=== PATIENT | female | born 1935 | race Caucasian/White ===

== ENCOUNTER 2018-01-21 15:25 | Inpatient (IN) | payer MEDICARE, OTHER ==
[~2018-01-21] VITALS: Ht 154.9 cm; Wt 45.4 kg
--- NOTE | 2018-01-21 15:30 | NUR ---
SENT BY DR BARNHART FOR L HIP WOUND DEBRIDEMENT, NAD NOTED, VSS, RESP EVEN AND UNLABORED, PT WAS PUT ON MONITOR, AT .
[2018-01-21 15:52] LABS: BASOPHILS % (AUTO) 0.2 % (0.0-2.0); HEMATOCRIT 29 % (33-45); HEMOGLOBIN 10.2 g/dL (11.5-14.8); LYMPHOCYTES # (AUTO) 0.7 /CMM (0.8-4.8); LYMPHOCYTES % (AUTO) 9.7 % (20.0-44.0); MEAN CORPUSCULAR HEMOGLOBIN 31 PG (26.0-33.0); MEAN CORPUSCULAR HGB CONC 35 g/dl (31.0-36.0); MEAN CORPUSCULAR VOLUME 89 fL (82-100); MONOCYTES # (AUTO) 0.5 /CMM (0.1-1.30); MONOCYTES % (AUTO) 6.4 % (2.0-12.0); NEUTROPHILS # (AUTO) 6.3 /CMM (1.8-8.9); NEUTROPHILS % (AUTO) 82.7 % (43.0-81.0); PLATELET COUNT (AUTO) 416 /CMM (150-450); RED BLOOD CELL COUNT(AUTO) 3.29 MIL/uL (4.0-5.2); WHITE BLOOD COUNT (AUTO) 7.6 K/uL (4.3-11.0)
--- NOTE | 2018-01-21 15:59 | NUR ---
PAGED DR BARNHART
[2018-01-21 16:01] LABS: CALCIUM, SERUM 8.6 mg/dL (8.5-10.1); CARBON DIOXIDE 25 mmol/L (21-32); CHLORIDE 100 mmol/L (98-107); CREATININE 0.4 mg/dL (0.6-1.3); GLUCOSE 116 mg/dL (74-106); POTASSIUM 3.9 mmol/L (3.5-5.1); SODIUM SERUM 133 mmol/L (136-145); UREA NITROGEN, BLOOD 10 mg/dL (7-18)
[2018-01-21 16:07] LABS: ALANINE AMINOTRANSFERASE 16 U/L (12-78); ALBUMIN 2.1 g/dL (3.4-5.0); ALKALINE PHOSPHATASE 85 U/L (46-116); ASPARTATE AMINOTRANSFERASE 15 U/L (15-37); BILIRUBIN,DIRECT 0.1 mg/dL (0.0-0.2); BILIRUBIN,TOTAL 0.3 mg/dL (0.2-1.0); TOTAL PROTEIN, SERUM 6.4 g/dL (6.4-8.2)
[2018-01-21] MEDS ORDERED: NA P133E RC (16:52)
[2018-01-21] MEDS ORDERED: MEMA5TAB PO (16:52)
[2018-01-21] MEDS ORDERED: CARB200T8 PO (16:52)
[2018-01-21] MEDS ORDERED: BENA20TA2 PO (16:52)
[2018-01-21] MEDS ORDERED: MAGN400O6 PO (16:52)
[2018-01-21] MEDS ORDERED: MIRT15TA PO (16:52)
[2018-01-21] MEDS ORDERED: NIFE60TA69 PO (16:52)
[2018-01-21] MEDS ORDERED: HYDR-4076 PO (16:52)
[2018-01-21] MEDS ORDERED: FERR325T23 PO (16:52)
[2018-01-21] MEDS ORDERED: ZINC220T PO (16:52)
[2018-01-21] MEDS ORDERED: ACET-2605 PO (16:52)
[2018-01-21] MEDS ORDERED: MULT-213 PO (16:52)
[2018-01-21] MEDS ORDERED: ASCO500T9 PO (16:52)
[2018-01-21] MEDS ORDERED: ACET-868 PO (16:52)
[2018-01-21 16:57] LABS: BAND % (MANUAL) 5 % (0.0-5.0); LYMPHOCYTES % (MANUAL) 5 % (16-48); MONOCYTES % (MANUAL) 10 % (0-11.0); NEUTROPHILS % (MANUAL) 80 (42-76)
--- NOTE | 2018-01-21 16:58 | NUR ---
REQUESTED MED SURG BED FROM NURSE SUP
--- NOTE | 2018-01-21 17:20 | NUR ---
PAGED DR. BARNHART - SECOND ATTEMPT
--- NOTE | 2018-01-21 17:48 | NUR ---
CALLED NURSE SUP FOR MED SURG BED
[2018-01-21] MEDS ORDERED: PIPERACILLIN /TAZOBACTAM 3.375 G in IV D5W 50 ML IV ONE (18:00)
[2018-01-21] MEDS ORDERED: VANCOMYCIN 1 GM in IV D5W 250 ML IV ONE (18:00)
--- NOTE | 2018-01-21 19:30 | NUR ---
TEST ANALYST NOTES: PATIENT RECEIVED IN BED, ALERT, ORIENTED X 1. MAKES INCOMPREHENSIBLE SOUNDS. NOT IN ANY DISTRESS. IV SITE INTACT AND PATENT. ADMISSION ORDERS TAKEN FROM DR. BARNHART. SKIN ASSESSMENT DONE, PICTURES IN CHART. DRESSINGS CLEANSED AND CLEANED. SAFETY PRECAUTIONS IN PLACE. WILL CONTINUE TO MONITOR
[2018-01-21 20:00] VITALS: BP 152/81
[2018-01-21] MEDS ORDERED: FEE PK DOSING 1 MIN EA MC ONE (20:23)
[2018-01-21] MEDS ORDERED: BENAZEPRIL HCL 20 MG TABLET PO ONE (22:30)
[2018-01-21] MEDS: ENOXAPARIN SODIUM 30 MG/0.3 ML DISP.SYRIN SQ SCH (22:49)
--- NOTE | 2018-01-21 22:57 | NUR ---
RN NOTES: BENAZEPRIL NOT GIVEN, PATIENT UNABLE TO SWALLOW. TRIED TO GIVE A LITTLE BIT OF APPLESAUCE FIRST, BUT PATIENT HAVE A HARD TIME SWALLOWING
--- NOTE | 2018-01-22 01:35 | NUR ---
RN NOTES: PATIENT TRANSFERRED TO ROOM 329 FOR ESBL WOUND ISOLATION.
--- NOTE | 2018-01-22 06:30 | NUR ---
RN NOTES: WOUND SWAB DONE. SENT TO LAB
--- NOTE | 2018-01-22 07:00 | NUR ---
RN CLOSING NOTES: PATIENT IN BED, ASLEEP BUT EASILY AROUSABLE. ANSERS TO NAME. IV SITE INTACT AND PATENT. NOT IN ANY DISTRESS. BODY AND SKIN ASSESSMENT DONE. ALL PICTURES TAKEN, PLACED IN CHART. ALL NEEDS ATTENDED TO. WILL ENDORSE RENETTA TO THE AM SHIFT RN
[2018-01-22] MEDS ORDERED: NA PHOS,M-B/NA PHOS,DI-BA 1 EA ENEMA RC PRN (07:30)
[2018-01-22] MEDS ORDERED: ACETAMINOPHEN 325 MG TABLET PO PRN (07:30)
[2018-01-22] MEDS ORDERED: MAGNESIUM HYDROXIDE 30 ML UDC PO PRN (07:30)
[2018-01-22] MEDS ORDERED: ACETAMINOPHEN ES 500 MG TABLET PO PRN (07:30)
[2018-01-22] MEDS ORDERED: CARBAMAZEPINE 200 MG TABLET PO PRN (07:30)
[2018-01-22 07:42] LABS: BASOPHILS # (AUTO) 0.1 /CMM (0.0-0.2); EOSINOPHILS % (AUTO) 1.6 % (0.0-6.0); HEMATOCRIT 30 % (33-45); HEMOGLOBIN 10.1 g/dL (11.5-14.8); LYMPHOCYTES # (AUTO) 0.7 /CMM (0.8-4.8); LYMPHOCYTES % (AUTO) 12.6 % (20.0-44.0); MEAN CORPUSCULAR HEMOGLOBIN 31 PG (26.0-33.0); MEAN CORPUSCULAR HGB CONC 34 g/dl (31.0-36.0); MEAN CORPUSCULAR VOLUME 92 fL (82-100); MONOCYTES # (AUTO) 0.4 /CMM (0.1-1.30); MONOCYTES % (AUTO) 6.7 % (2.0-12.0); NEUTROPHILS # (AUTO) 4.6 /CMM (1.8-8.9); NEUTROPHILS % (AUTO) 78.1 % (43.0-81.0); PLATELET COUNT (AUTO) 337 /CMM (150-450); RDW COEFFICIENT OF VARIATION 14.9 (11.5-15.0); RED BLOOD CELL COUNT(AUTO) 3.25 MIL/uL (4.0-5.2); WHITE BLOOD COUNT (AUTO) 5.9 K/uL (4.3-11.0)
--- NOTE | 2018-01-22 07:45 | NUR ---
MS RN OPENING NOTE RECEIVED BEDSIDE SBAR REPORT ON THE PATIENT. PATIENT IS ON CONTACT AMBULATION FOR ESBL URINE. PATIENT IS ALERT, ORIENTED TO SELF ONLY. VERBALLY REPONSIVE,BUT PRESENTS WITH GARBLED SPEECH. PATIENT IS IN BED, BED IS LOCKED IN LOWEST POSITION, SIDE RAILS UP X3, BED ALARM IS ON. CALL LIGHT WITHIN REACH. EDUCATED THE PATIENT TO CALL FOR ASSISTANCE USING THE CALL LIGHT. DENIES PAIN/DISCOMFORT AT THIS TIME. CHEST RISING EQUALLY/BILATERALLY. SPO2 99% ON 2 LPM OXYGEN VIA NASAL CANNULA. ESTRELLA CATHETER IN PLACE. ALL NEEDS ARE MET. WILL CONTINUE TO ASSESS/MONITOR THROUGHOUT THE SHIFT.
[2018-01-22 08:00] VITALS: BP_SYST 146; BP_DIAS 77; BP_DIAS 82
[2018-01-22] MEDS ORDERED: CARBAMAZEPINE 100 MG TAB.CHEW PO PRN (08:00)
[2018-01-22 08:21] LABS: CALCIUM, SERUM 8.6 mg/dL (8.5-10.1); CARBON DIOXIDE 24 mmol/L (21-32); CHLORIDE 101 mmol/L (98-107); CREATININE 0.4 mg/dL (0.6-1.3); GLUCOSE 68 mg/dL (74-106); POTASSIUM 3.6 mmol/L (3.5-5.1); SODIUM SERUM 133 mmol/L (136-145); UREA NITROGEN, BLOOD 9 mg/dL (7-18)
[2018-01-22] MEDS: BENAZEPRIL HCL 20 MG TABLET PO SCH ×2 (08:51→21:00)
[2018-01-22] MEDS: NIFEdipine XL 60 MG TAB PO SCH ×2 (08:52→17:22)
[2018-01-22] MEDS: ASCORBIC ACID 500 MG TABLET PO SCH (08:52)
[2018-01-22] MEDS: MEMANTINE HCL 5 MG TABLET PO SCH (08:52)
[2018-01-22] MEDS ORDERED: BENAZEPRIL HCL 20 MG TABLET PO SCH (09:00)
[2018-01-22] MEDS: VANCOMYCIN 0.75 GM in IV D5W 250 ML IV SCH (12:49)
[2018-01-22 16:00] VITALS: BP 182/81
[2018-01-22] MEDS: hydrALAZINE HCL 25 MG TABLET PO SCH ×2 (17:22→21:00)
--- NOTE | 2018-01-22 17:22 | NUR ---
holding the hydralazine at this time as patient's bp is 111/59
--- NOTE | 2018-01-22 19:33 | NUR ---
MS RN CLOSING NOTE GAVE BEDSIDE SBAR REPORT ON THE PATIENT. PATIENT IS ON CONTACT AMBULATION FOR ESBL URINE. PATIENT IS ALERT, ORIENTED TO SELF ONLY. VERBALLY REPONSIVE,BUT PRESENTS WITH GARBLED SPEECH. PATIENT IS IN BED, BED IS LOCKED IN LOWEST POSITION, SIDE RAILS UP X3, BED ALARM IS ON. CALL LIGHT WITHIN REACH. EDUCATED THE PATIENT TO CALL FOR ASSISTANCE USING THE CALL LIGHT. DENIES PAIN/DISCOMFORT AT THIS TIME. CHEST RISING EQUALLY/BILATERALLY. SPO2 99% ON 2 LPM OXYGEN VIA NASAL CANNULA. ESTRELLA CATHETER IN PLACE. ALL NEEDS ARE MET. ENDORSED TO [facility] GRAIN RECEIVER NURSE FOR RENETTA.
[2018-01-22 20:00] VITALS: BP 105/74
--- NOTE | 2018-01-22 20:00 | NUR ---
MS/CRYSTAL GROWING TECHNICIAN; RECEIVED THIS PT IN BED AWAKE WITH OPEN EYES NON VERBAL BUT MUMBLED WITH OPEN MOUTH AT TIMES. HOB AT 45 DEGREES. BREATHING NON LABORED. HL ON RH # 22 INTACT AND PATENT WHEN I FLUSHED WITH NS. FC INTACT WITH 25 ML CLEAR YELLOW URINE. NOTED PT LOWER EXTREMITIES ARE CONTRACTED. BED ON LOWER POSITION AND LOCKED FOR SAFETY. SIDE RAILS X 4 ARE UP FOR SAFETY. ON CONTACT ISOLATION OBSERVED. WILL CONNTINUE TO MONITOR.
[2018-01-22] MEDS: ENOXAPARIN SODIUM 30 MG/0.3 ML DISP.SYRIN SQ SCH (21:12)
[2018-01-23] MEDS: hydrALAZINE HCL 25 MG TABLET PO SCH ×3 (05:08→21:03)
[2018-01-23 06:17] LABS: RETICULOCYTE COUNT 2.6 % (0.6-2.5)
[2018-01-23 06:24] LABS: CALCIUM, SERUM 8.7 mg/dL (8.5-10.1); CARBON DIOXIDE 26 mmol/L (21-32); CHLORIDE 101 mmol/L (98-107); CREATININE 0.4 mg/dL (0.6-1.3); GLUCOSE 89 mg/dL (74-106); POTASSIUM 3.4 mmol/L (3.5-5.1); SODIUM SERUM 133 mmol/L (136-145); UREA NITROGEN, BLOOD 8 mg/dL (7-18)
--- NOTE | 2018-01-23 06:41 | NUR ---
MS/ELEMENTARY SCHOOL READING TEACHER; PT SLEPT FAIRLY. KEPT CLEAN AND DRY. DRESSING / MEPILEX CHANGED TO RT HIP , AND SACRAL WOUNDS. TURNED AND REPOSITIONED. WILL CONTINUE TO MONITOR. WILL ENDORSE TO THE DAY SHIFT NURSE FOR CONTINUITY OF CARE.
[2018-01-23] MEDS: VANCOMYCIN 0.75 GM in IV D5W 250 ML IV SCH ×2 (06:42→23:55)
--- NOTE | 2018-01-23 07:10 | NUR ---
MS/RN NOTE SILVER NITRATE APPLICATOR NOT RECEIVED FROM PHARMACY. PHARM IS MADE AWARE. WOUND DEBRIDEMENT NOT DONE DURING THE SHIFT.
[2018-01-23 07:14] LABS: FERRITIN 481 ng/mL (8-388); THYROID STIMULATING HORMONE 4.753 uIU/mL (0.358-3.74); URIC ACID 3.1 mg/dL (2.6-7.2)
[2018-01-23 07:17] LABS: IRON, SERUM 32 ug/dl (50-175); TOTAL IRON BINDING CAPACITY 146 ug/dl (250-450)
--- NOTE | 2018-01-23 07:32 | NUR ---
MS/RN OPENING NOTE PATIENT IS RECEIVED IN BED SLEEPING. AROUSABLE TO TACTILE STIMULI. ALERT AND ORIENTED X1. DENIES SOB. DENIES PAIN. RESPIRATION REGULAR AND UNLABORED. PATIENT IN ROOM AIR. PATIENT IN NO APPARENT DISTRESS. ESTRELLA CATH DRAINING CLEAR AND YELLOW COLOR URINE. RIGHT HAND G 22 PATENT AND SALINE LOCKED. CONTACT ISOLATION IS OBSERVED FOR ESBL OF URINE AND WOUND. BED LOW AND LOCKED. SIDE RAILS UP X3. CALL LIGHT WITHIN REACH. WILL CONTINUE TO MONITOR.
[2018-01-23 08:00] VITALS: BP 160/79
[2018-01-23] MEDS: MEMANTINE HCL 5 MG TABLET PO SCH (08:22)
[2018-01-23] MEDS: NIFEdipine XL 60 MG TAB PO SCH ×2 (08:22→16:31)
[2018-01-23] MEDS: ASCORBIC ACID 500 MG TABLET PO SCH (08:23)
[2018-01-23] MEDS: BENAZEPRIL HCL 20 MG TABLET PO SCH ×2 (08:23→22:53)
[2018-01-23 10:45] VITALS: BP 138/82
--- NOTE | 2018-01-23 11:06 | NUR ---
WOUND CARE CONSULT: PT PRESENTS WITH MULTIPLE WOUNDS, PRESENT ON ADMISSION. RECOMMENDATIONS MADE FOR WOUND CARE AND SKIN PROTECTION. DISCUSSED WITH NURSING STAFF. 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 PT ON LARRY ISOFLEX LOW AIRLOSS BED. WILL SEE PRN. SURGEON FOLLOWING FOR POSSIBLE DEBRIDEMENT. WILL SEE PRN. M D IN AGREEMENT WITH PLAN OF CARE. Addendum: 01/23/18 at 1111 by EFRAIN BURTON WNDNU Amended: Links added.
[2018-01-23] MEDS ORDERED: POTASSIUM CHLORIDE 20 MEQ POWDER PACKET PO SCH (11:30)
[2018-01-23] MEDS ORDERED: HYDROGEL DRESSING 90 GM TUBE TP PRN (11:30)
[2018-01-23 16:00] VITALS: BP 154/102
[2018-01-23] MEDS ORDERED: LIDOCAINE 1%-EPI 1:100,000 20 ML VIAL TP ONE (16:00)
[2018-01-23] MEDS ORDERED: SILVER NITRATE APPLICATOR 1 EA BOX TP ONE (16:00)
[2018-01-23] MEDS: DAKINS QUARTER STRENGTH (0.125%) 480 ML BOTTLE TOP SCH (16:47)
[2018-01-23] MEDS: HYDROGEL DRESSING 90 GM TUBE TP SCH (16:47)
--- NOTE | 2018-01-23 17:00 | NUR ---
MS/RN NOTE LIDOCAINE 1%-EPI 1:100,000 NOT ADMINISTERED SINCE WOUND DEBRIDEMENT NOT DONE DURING THE SHIFT. THE MEDICATION IS IN CASET IN MED ROOM.
--- NOTE | 2018-01-23 17:20 | NUR ---
MS/RN NOTE DR OLSEN IS MADE AWARE OF RIGHT HIP MICROBIOLOGY RESULT ( STAPH AUREUS GRAM NEGATIVE RODS) AND PER MD NO NEW ORDER.
[2018-01-23] MEDS: Z GUARD REMEDY 2 OZ OINT TP SCH (17:47)
--- NOTE | 2018-01-23 18:09 | NUR ---
MS/RN CLOSING NOTE PATIENT ALERT AND ORIENTED X1. NO MANIFESTATION OF SOB, PAIN AT THIS TIME. PATIENT IN STABLE CONDITION. LEFT HAND G 22 PATENT AND SALINE LOCKED. PATIENT IS ASSISTED DURING MEAL TIMES. ASPIRATION PRECAUTIONS ARE OBSERVED. WOUND DRESSING CHANGES DONE PER ORDER AND THE PATIENT TOLERATED WELL. GOOD AND GENTLE SKIN CARE RENDERED. KEPT CLEAN, DRY AND COMFORTABLE. TURNED AND REPOSITIONED Q2HR AND NEEDED. BED LOW AND LOCKED. SIDE RAILS UP X3. CALL LIGHT WITHIN REACH. WILL ENDORSE TO DIE STAMPING PRESS OPERATOR.
--- NOTE | 2018-01-23 19:20 | NUR ---
MS/SIGN HANGER SUPERVISOR; RECEIVED PT IN BED SLEEPING WITH OPENED MOUTH. BREATHING NON LABORED. PT IS AROUSABLE BUT JUST MUMBLE WHEN SHE TALKED. HL INTACT. FC INTACT WITH YELLOW URINE. ON CONTACT ISOLATION OBSERVED. BED ON LOWER POSITION AND LOCKED FOR SAFETY. SIDE RAILS ARE UP FOR SAFETY. HOB ELEVATED FOR ASPIRATION PRECAUTION. PT IS CONTRACTED LOWER EXTREMITIES. CALL LIGHT WITHIN REACH. OLIVIER CONTINUE TO MONITOR.
[2018-01-23 20:00] VITALS: BP 116/59
[2018-01-23 22:01] LABS: INR 1.08 (0.87-1.13)
[2018-01-24] MEDS: hydrALAZINE HCL 25 MG TABLET PO SCH ×3 (05:27→22:33)
--- NOTE | 2018-01-24 06:41 | NUR ---
MS/SOCIOLOGY PROFESSOR; SLEPT FAIRLY. AM CARE DONE BY THE SUPERVISOR SCOURING PADS. TURNED AND REPOSITIONED FOR COMFORT. FC INTACT WITH 800 ML YELLOW URINE. CONTINUE TO MONITOR . WILL ENDORSE TO THE DAY SHIFT NURSE.
--- NOTE | 2018-01-24 07:32 | NUR ---
MS RN OPENING NOTES RECEIVED PT SITTING UPRIGHT, RESTING COMFORTABLY. PT IS EASILY AROUSABLE, A/O X1. RESPIRATIONS ARE EVEN AND UNLABORED, NOT IN ANY ACUTE DISTRESS NOTED. IV SITES ARE INTACT, DRESSING KEPT CLEAN AND DRY. PT APPEARS TO BE CONTRACTED WITH BLE, WILL REPOSITION PER PROTOCOL. SAFETY MEASURES ARE IN PLACE. BED IS IN ITS LOCKED AND LOWEST POSITION. WILL CONTINUE TO MONITOR THROUGHOUT SHIFT FOR CONTINUITY OF CARE.
[2018-01-24 08:00] VITALS: BP 154/85
[2018-01-24] MEDS: DAKINS QUARTER STRENGTH (0.125%) 480 ML BOTTLE TOP SCH (08:50)
[2018-01-24] MEDS: HYDROGEL DRESSING 90 GM TUBE TP SCH (08:50)
[2018-01-24] MEDS: MEMANTINE HCL 5 MG TABLET PO SCH (08:51)
[2018-01-24] MEDS: Z GUARD REMEDY 2 OZ OINT TP SCH (08:51)
[2018-01-24] MEDS: NIFEdipine XL 60 MG TAB PO SCH ×2 (08:52→16:48)
[2018-01-24] MEDS: ASCORBIC ACID 500 MG TABLET PO SCH (08:52)
[2018-01-24] MEDS: BENAZEPRIL HCL 20 MG TABLET PO SCH ×2 (08:52→22:33)
[2018-01-24 09:29] LABS: CALCIUM, SERUM 8.9 mg/dL (8.5-10.1); CARBON DIOXIDE 27 mmol/L (21-32); CHLORIDE 104 mmol/L (98-107); CREATININE 0.8 mg/dL (0.6-1.3); GLUCOSE 81 mg/dL (74-106); POTASSIUM 4.8 mmol/L (3.5-5.1); SODIUM SERUM 135 mmol/L (136-145); UREA NITROGEN, BLOOD 16 mg/dL (7-18)
--- NOTE | 2018-01-24 09:30 | NUR ---
MS RN NOTES RIGHT HIP WOUND DEBRIDEMENT DONE BY GLENDY GUTIERREZ. PT TOLERATED PROCEDURE WELL. WILL CONTINUE TO MONITOR THROUGHOUT SHIFT FOR CONTINUITY OF CARE.
[2018-01-24 16:00] VITALS: BP 155/84
[2018-01-24] MEDS: VANCOMYCIN 0.75 GM in IV D5W 250 ML IV SCH (17:00)
--- NOTE | 2018-01-24 18:39 | NUR ---
MS RN CLOSING NOTES ALL DUE MEDS GIVEN, NEEDS MET AND RENDERED. PT REMAINS A/O X1, AFEBRILE. RESPIRATIONS ARE EVEN AND UNLABORED, NOT IN ANY ACUTE DISTRESS NOTED. NEW PERIPHERAL IV TO RIGHT FOREARM, DRESSING KEPT CLEAN AND DRY. REPOSITIONED PER PROTOCOL. SAFETY MEASURES ARE IN PLACE. WILL ENDORSE TO NEXT SHIFT FOR CONTINUITY OF CARE.
--- NOTE | 2018-01-24 19:25 | NUR ---
MS/RN NOTES RECEIVED PT. LYING IN BED. PT. IS A&O X1. BREATHING EVEN AND UNLABORED ON ROOM AIR. NO SOB, RESPIRATORY DISTRESS OR S/S OF PAIN NOTED AT THIS TIME. PT. WITH RIGHT FOREARM 22 GAUGE IV SALINE LOCK PRESENT, PATENT AND INTACT. PT. WITH ESTRELLA CATHETER PRESENT, PATENT AND INTACT. ISOLATION PRECAUTIONS IMPLEMENTED AND IN PLACE. BED LOCKED AND IN LOWEST POSITION, SIDE RAILS UP X3, BED ALARM ON, WILL CONTINUE TO MONITOR.
[2018-01-24 20:00] VITALS: BP 152/83
[2018-01-25] MEDS: hydrALAZINE HCL 25 MG TABLET PO SCH ×3 (05:33→20:46)
--- NOTE | 2018-01-25 06:12 | NUR ---
MS/RN NOTES PT. IS LYING IN BED RESTING. BREATHING EVEN AND UNLABORED ON ROOM AIR. NO SOB, RESPIRATORY DISTRESS OR S/S OF PAIN NOTED AT THIS TIME AND THROUGHOUT SHIFT. PT. WITH RIGHT FOREARM 22 GAUGE IV SALINE LOCK PRESENT, PATENT AND INTACT. PT. WITH ESTRELLA CATHETER PRESENT, PATENT AND INTACT DRAINING CLEAR CHRIS URINE. ISOLATION PRECAUTIONS IMPLEMENTED AND IN PLACE. ALL PT. NEEDS MET. PT. OFFLOADED, TURNED AND REPOSITIONED Q2H AND NEEDED. BED LOCKED AND IN LOWEST POSITION, SIDE RAILS UP X3, BED ALARM ON, WILL ENDORSE TO DAYSHIFT NURSE FOR CONTINUITY OF CARE.
[2018-01-25 07:14] LABS: CALCIUM, SERUM 8.6 mg/dL (8.5-10.1); CARBON DIOXIDE 24 mmol/L (21-32); CHLORIDE 100 mmol/L (98-107); CREATININE 0.9 mg/dL (0.6-1.3); GLUCOSE 90 mg/dL (74-106); SODIUM SERUM 133 mmol/L (136-145); UREA NITROGEN, BLOOD 20 mg/dL (7-18)
[2018-01-25 08:00] VITALS: BP 156/74
--- NOTE | 2018-01-25 08:00 | NUR ---
received pt. alert and oriented x1.stable.in isolation.
[2018-01-25] MEDS: HYDROGEL DRESSING 90 GM TUBE TP SCH (09:41)
[2018-01-25] MEDS: DAKINS QUARTER STRENGTH (0.125%) 480 ML BOTTLE TOP SCH (09:42)
[2018-01-25] MEDS: NIFEdipine XL 60 MG TAB PO SCH ×2 (09:43→17:57)
[2018-01-25] MEDS: MEMANTINE HCL 5 MG TABLET PO SCH (09:43)
[2018-01-25] MEDS: ASCORBIC ACID 500 MG TABLET PO SCH (09:43)
[2018-01-25] MEDS: BENAZEPRIL HCL 20 MG TABLET PO SCH ×2 (09:45→20:46)
[2018-01-25] MEDS ORDERED: DOSE PER PHARMACY (MD SPECIFY MEDICATION) 1 EA XX PRN (10:00)
--- NOTE | 2018-01-25 11:00 | NUR ---
received word pt. with pseudomonas in rt.hip.pharmacy to get in touch with md.for med order.
[2018-01-25] MEDS: MEROPENEM 500 MG in IV NS 0.9% 50 ML IV SCH ×2 (11:52→22:32)
[2018-01-25] MEDS: VANCOMYCIN 0.75 GM in IV D5W 250 ML IV SCH (12:00)
[2018-01-25] MEDS: Z GUARD REMEDY 2 OZ OINT TP PRN ×2 (12:16→12:17)
[2018-01-25] MEDS: Z GUARD REMEDY 2 OZ OINT TP SCH (12:18)
[2018-01-25 16:00] VITALS: BP 124/60
--- NOTE | 2018-01-25 18:00 | NUR ---
no changes,pt. stable.wound care done as ordered.
--- NOTE | 2018-01-25 19:30 | NUR ---
MS RN OPENING NOTE Patient was seen lying in bed awake but only oriented x1, breathing on RA with no SOB, and no signs of acute distress. Wound dressings noted on right hip, sacrum, and bilateral heels; all clean, dry, and intact. SL IVs in the left AC and right RA. Bed is in the low/locked position, two side rails up, call cottrell within reach. Patient appears to be comfortable at this time. Will continue to monitor.
[2018-01-25 20:00] VITALS: BP 123/42
[2018-01-26] MEDS: hydrALAZINE HCL 25 MG TABLET PO SCH ×3 (05:45→21:00)
[2018-01-26 06:05] LABS: EOSINOPHILS % (AUTO) 1.8 % (0.0-6.0); HEMATOCRIT 31 % (33-45); HEMOGLOBIN 10.3 g/dL (11.5-14.8); LYMPHOCYTES % (AUTO) 11.3 % (20.0-44.0); MEAN CORPUSCULAR HEMOGLOBIN 30 PG (26.0-33.0); MEAN CORPUSCULAR HGB CONC 33 g/dl (31.0-36.0); MEAN CORPUSCULAR VOLUME 92 fL (82-100); MONOCYTES # (AUTO) 0.6 /CMM (0.1-1.30); MONOCYTES % (AUTO) 6.6 % (2.0-12.0); NEUTROPHILS % (AUTO) 80.3 % (43.0-81.0); PLATELET COUNT (AUTO) 407 /CMM (150-450); RDW COEFFICIENT OF VARIATION 14.6 (11.5-15.0); RED BLOOD CELL COUNT(AUTO) 3.42 MIL/uL (4.0-5.2); WHITE BLOOD COUNT (AUTO) 8.7 K/uL (4.3-11.0)
[2018-01-26 06:38] LABS: ALANINE AMINOTRANSFERASE 17 U/L (12-78); ALBUMIN 2.2 g/dL (3.4-5.0); ALKALINE PHOSPHATASE 88 U/L (46-116); ASPARTATE AMINOTRANSFERASE 20 U/L (15-37); BILIRUBIN,TOTAL 0.4 mg/dL (0.2-1.0); CALCIUM, SERUM 8.6 mg/dL (8.5-10.1); CARBON DIOXIDE 25 mmol/L (21-32); CHLORIDE 102 mmol/L (98-107); CREATININE 0.9 mg/dL (0.6-1.3); GLUCOSE 83 mg/dL (74-106); POTASSIUM 4.1 mmol/L (3.5-5.1); SODIUM SERUM 134 mmol/L (136-145); TOTAL PROTEIN, SERUM 6.7 g/dL (6.4-8.2); UREA NITROGEN, BLOOD 20 mg/dL (7-18)
--- NOTE | 2018-01-26 07:30 | NUR ---
ms rn initial notes Received patient in bed, asleep, head of bed elevated, no SOB or distress noted, on room air with 02 sat of 96%. On isolation for ESBL urine and MRSA wound. Patient is alert and oriented x 1, confused as endorsed by warehouse worker 2nd shift RN. Rhoades in palced with output of 400ml from warehouse worker 2nd shift. LES midline intact, sl only. Call light with in patient reach, will continue to monitor accordingly.
--- NOTE | 2018-01-26 07:35 | NUR ---
MS RN CLOSING NOTE Patient slept intermittently overnight but had no complications or acute events. Patient remains in stable condition. Patient care endorsed to day shift nurse.
[2018-01-26 08:00] VITALS: BP 170/91
[2018-01-26] MEDS ORDERED: VANCOMYCIN 500 MG in IV D5W 100 ML IV SCH (08:00)
--- NOTE | 2018-01-26 08:00 | NUR ---
ms rn notes Called pharmacy and spoke to Flarpan and informed about patient's vanco trough of 23 and per pharmacist hold dose for today. Will continue to monitor.
[2018-01-26] MEDS: ASCORBIC ACID 500 MG TABLET PO SCH (08:40)
[2018-01-26] MEDS: MEMANTINE HCL 5 MG TABLET PO SCH (08:40)
[2018-01-26] MEDS: HYDROGEL DRESSING 90 GM TUBE TP SCH (08:40)
[2018-01-26] MEDS: BENAZEPRIL HCL 20 MG TABLET PO SCH ×2 (08:40→21:00)
[2018-01-26] MEDS: NIFEdipine XL 60 MG TAB PO SCH ×2 (08:40→17:39)
[2018-01-26] MEDS: DAKINS QUARTER STRENGTH (0.125%) 480 ML BOTTLE TOP SCH (08:41)
[2018-01-26] MEDS: Z GUARD REMEDY 2 OZ OINT TP SCH (08:44)
[2018-01-26] MEDS: MEROPENEM 500 MG in IV NS 0.9% 50 ML IV SCH ×2 (09:14→21:08)
[2018-01-26 16:00] VITALS: BP 158/79
[2018-01-26] MEDS: LACTOBACILLUS RHAMNOSUS GG 1 EACH CAP.SPRINK PO SCH (17:39)
--- NOTE | 2018-01-26 19:04 | NUR ---
ms rn closing notes All needs provided, attended, and anticipated. Patient is in stable condition. Endorsed to next shift RN to continue care. Jimmy light with in patient reach.
--- NOTE | 2018-01-26 19:20 | NUR ---
MS RN OPENING NOTE Patient was seen lying in bed AAOx1, breathing on RA with no SOB, and no signs of acute distress. Rhoades cath is draining clear, yellow urine. Dressings on right hip, sacrum, and bilateral feet are clean, dry, and intact. LES midline and right FA IV remain intact. Bed is in the low/locked position, two side rails up, and call cottrell within reach. Patient appears to be comfortable at this time. Will continue to monitor.
[2018-01-26 20:00] VITALS: BP 98/57
[2018-01-27] MEDS: hydrALAZINE HCL 25 MG TABLET PO SCH ×3 (05:03→21:00)
--- NOTE | 2018-01-27 07:03 | NUR ---
MS RN CLOSING NOTE Patient is breathing on RA with no SOB and no signs of acute distress. Patient remains confused, non-oriented, and nonverbal. Wound care was provided as ordered overnight and dressings are clean, dry, and intact. Patient was turned and repositioned q2h. Patient slept poorly overnight but had no complications and remains in stable condition. Bed is low/locked, two side rails up, call cottrell within reach. Patient care endorsed to day shift nurse.
[2018-01-27 07:39] LABS: CALCIUM, SERUM 8.6 mg/dL (8.5-10.1); CARBON DIOXIDE 24 mmol/L (21-32); CHLORIDE 104 mmol/L (98-107); CREATININE 1.2 mg/dL (0.6-1.3); GLUCOSE 121 mg/dL (74-106); POTASSIUM 4.1 mmol/L (3.5-5.1); SODIUM SERUM 136 mmol/L (136-145); UREA NITROGEN, BLOOD 25 mg/dL (7-18); VANCOMYCIN,TROUGH 17 ug/ml (12-20)
[2018-01-27 08:00] VITALS: BP 164/94
--- NOTE | 2018-01-27 08:00 | NUR ---
rn notes received patient in the bed a/a/o x1 nonverbal, anxious, faciale muscle gestures , turning face side to side. patient on aspiration precaution, patient total care, keep hob elevated, assist turn and reposition q 2 hr. Edema bilateral lower extremities. v/s taken bp -164/94, p-77, scheduled medication administered crushed mixed with apple sauce. patient has no acute respiratory distress, assist eating, continued monitoring.
[2018-01-27] MEDS: VANCOMYCIN 500 MG in IV D5W 100 ML IV SCH (08:03)
[2018-01-27] MEDS: NIFEdipine XL 60 MG TAB PO SCH ×2 (08:42→17:45)
[2018-01-27] MEDS: MEMANTINE HCL 5 MG TABLET PO SCH (08:42)
[2018-01-27] MEDS: BENAZEPRIL HCL 20 MG TABLET PO SCH ×2 (08:42→21:00)
[2018-01-27] MEDS: ASCORBIC ACID 500 MG TABLET PO SCH (08:42)
[2018-01-27] MEDS: LACTOBACILLUS RHAMNOSUS GG 1 EACH CAP.SPRINK PO SCH ×2 (08:42→17:45)
[2018-01-27] MEDS: HYDROGEL DRESSING 90 GM TUBE TP SCH (08:43)
[2018-01-27] MEDS: DAKINS QUARTER STRENGTH (0.125%) 480 ML BOTTLE TOP SCH (08:43)
[2018-01-27] MEDS: Z GUARD REMEDY 2 OZ OINT TP SCH (08:44)
--- NOTE | 2018-01-27 08:48 | NUR ---
rn notes administered Tylenol 1000 mg po prn for generalized pain unable to get pain level per pain scale. patient grimacing face, anxious, making noise, call light within to reach continued monitoring.
[2018-01-27] MEDS: MEROPENEM 500 MG in IV NS 0.9% 50 ML IV SCH ×2 (09:28→23:09)
--- NOTE | 2018-01-27 12:00 | NUR ---
RN NOTES V/S TAKEN BP BP 184/ 77, SCHEDULED MEDICATION ADMINISTERED, ASSIST TURN AND REPOSTION Q 2 HR, , PATIENT ASPIRATION PRECAUTION, CALL LIGHT WITHIN TO REACH,. CONTINUED MONITORING.
[2018-01-27 16:00] VITALS: BP 166/76
--- NOTE | 2018-01-27 17:00 | NUR ---
RN NOTES H/P FAXED DR BARNHART'S PACKING SUPERVISOR FAX [phone]. PER COORDINATOR PATIENT WILL D/C SNF TOMORROW.
--- NOTE | 2018-01-27 17:00 | NUR ---
RN NOTES PATIENT CONFUSED. NO ACUTE RESPIRATORY DISTRESS, SCHEDULED MEDICATION ADMINISTERED CRUSHED MIXED WITH APPLE SAUCE. PATIENT ASPIRATION PRECAUTION, DRESSING CHANGED, PATIENT HAS BM X1, F/C DRAIN LIGHT YELLOW OUTPUT, PATIENT TOTAL CARE, ASSIST TURN AND REPOSTION Q 2 HR.
--- NOTE | 2018-01-27 18:30 | NUR ---
RN NOTES PATIENT STABLE , NO ACUTE RESPIRATORY DISTRESS. ENDORSED ONCOMING NURSE FOR PLAN OF CARE.
--- NOTE | 2018-01-27 19:55 | NUR ---
MS RN Notes Report received. Patient received in bed, resting. On contact isolation for ESBL urine and MRSA of the wound. LES Midine and Right forearm 22g:patent and intact. Vital signs are on the low side:79/38 on RA. obtained from all 4 extremities and resulted 70s/40s. Oxygen saturating @91% in room air. Bed in lowest position with bed alarm on and call light within reach. Will continue to monitor and assess patient's contidiont
[2018-01-27 20:00] VITALS: BP 106/65
--- NOTE | 2018-01-27 20:05 | NUR ---
MS RN NOTES lowered HOB and raised ble and RE-checked bp: 106/65 P71
--- NOTE | 2018-01-27 21:45 | NUR ---
MS RN - REPORT AND NEW ORDER NOTES Called and spoke with Juhi Koch NP regarding desaturation despite oxygen, and episodes of low blood pressure. New orders of ABG Stat, CXR stat, NS 1L Bolus once and hold bp medications for tonight. Please call MD to verify before resuming morning medications.
[2018-01-27] MEDS ORDERED: IV NS 0.9% 1,000 ML BAG IV ONE (22:00)
[2018-01-27 23:25] LABS: ABG BASE EXCESS 0.8 mmol/L; ABG OXYGEN SATURATION 87.3 % (92.0-98.5); ABG PCO2 24.7 mmHg (35.0-45.0); ABG PH 7.567 (7.350-7.450); ABG PO2 47.4 mmHg (75.0-100.0); AaDO2 209.4 mmHg; COHb 0.3 % (0.5-1.5); MetHb 0.4 % (0.0-1.5); O2Hb 86.7 % (94.0-97.0)
--- NOTE | 2018-01-27 23:52 | NUR ---
MS RN - PROVIDER REPORT AND NEW ORDER NOTES GLENDY Koch made aware of ABG lab result of pH 7.56 CO2 24.7 pO2 47.4 HCO3 22 New order of Pulmonary consult and continue on oxygen therapy
--- NOTE | 2018-01-28 01:49 | NUR ---
RT NOTES RN GEMDEISY AWARE OF ABG RESULTS. NT SUCTIONED DPT POST ABG FOR MODERATE THICK SECRETIONS. PLACED PT ON 100% NONREBREAKER MASK. RN CUT OFF MACHINE HELPER AND TETE ESCAMILLA MADE AWARE OF THE CHANGES. WILL CONT TO MONITOR PT FOR REST OF SHIFT.
--- NOTE | 2018-01-28 02:10 | NUR ---
MS RN Notes Patient awake and continues to remove mask off. Reorients patient but continues to do so. Will continue to monitor, assess and reorient patient
[2018-01-28] MEDS: hydrALAZINE HCL 25 MG TABLET PO SCH ×3 (05:00→21:17)
--- NOTE | 2018-01-28 05:28 | NUR ---
MS RN - NON-ADMIN NOTES Held Hydralazine per Provider's order. BP: 108/65 P 68 Will endorse to oncoming shift nurse
--- NOTE | 2018-01-28 06:25 | NUR ---
MS RN CLOSING NOTES. Patient remained in bed, intermittently sleeping, nonverbal. Turned and repositioned Q2H with offloading bilateral feet/heels. Wound dressings changed per order. No facial grimacing noted and reported. Remains on contact isolation for ESBL urine and MRSA wound; on antibiotic treatment. Held blood pressure meds through the shift d/t episode of hypotension. Will re-check BP. On continuous oxygen therapy @5-6 lpm via mask with no unlabored breathing noted or reported. No SOB noted or reported. IV on right forearm 22g and LES midline: patent and intact. Rhoades cath in place: draining clear, rima 300cc of urine though the shift. Safety measures in place. Bed in lowest position with bed alarm on and call light within reach. Will endorse to oncoming shift nurse
[2018-01-28 08:00] VITALS: BP 197/104
--- NOTE | 2018-01-28 08:00 | NUR ---
RN NOTES RECEIVED PATIENT IN THE BED NONVERBAL, WHEN CALLED NAME OR TOUCHED PATIENT ABLE TO OPEN EYES. PATIENT ON FACIAL MASK 5L, KEEP HOB ELEVATED. PATIENT ASPIRATION PRECAUTION, V/S TAKEN BP- 197/104, P-90. NOTIFIED DR BARNHART AND PER MD HOLD AM MEDICATION, AND GET NEW ORDER CATAPRES 0.1 PATCH, ORDER TAKEN AND CARRIED OUT. DRESSING CHANGED, ASSIST TURN AND REPOSTION Q 2 HR. IV ON RIGHT FA INTACT SL. CALL LIGHT WITHIN TO REACH, SAFETY PRECAUTION MAINTAINED ALL THE TIME.
[2018-01-28 08:06] LABS: CALCIUM, SERUM 8.9 mg/dL (8.5-10.1); CARBON DIOXIDE 24 mmol/L (21-32); CHLORIDE 106 mmol/L (98-107); GLUCOSE 88 mg/dL (74-106); POTASSIUM 4.6 mmol/L (3.5-5.1); SODIUM SERUM 136 mmol/L (136-145); UREA NITROGEN, BLOOD 30 mg/dL (7-18)
[2018-01-28] MEDS: NIFEdipine XL 60 MG TAB PO SCH ×2 (09:00→17:07)
[2018-01-28] MEDS: BENAZEPRIL HCL 20 MG TABLET PO SCH ×2 (09:00→21:17)
[2018-01-28] MEDS: ASCORBIC ACID 500 MG TABLET PO SCH (09:00)
[2018-01-28] MEDS: MEMANTINE HCL 5 MG TABLET PO SCH (09:00)
[2018-01-28] MEDS: LACTOBACILLUS RHAMNOSUS GG 1 EACH CAP.SPRINK PO SCH ×2 (09:00→17:06)
[2018-01-28] MEDS: VANCOMYCIN 500 MG in IV D5W 100 ML IV SCH (09:40)
[2018-01-28] MEDS: DAKINS QUARTER STRENGTH (0.125%) 480 ML BOTTLE TOP SCH (09:44)
[2018-01-28] MEDS: HYDROGEL DRESSING 90 GM TUBE TP SCH (09:44)
[2018-01-28] MEDS: Z GUARD REMEDY 2 OZ OINT TP SCH (09:45)
[2018-01-28] MEDS ORDERED: CLONIDINE HCL 0.1MG/24H PTWK 1 EA PATCH TD SCH (10:00)
--- NOTE | 2018-01-28 10:00 | NUR ---
RN NOTES RECHECKED PATIENT BP-183/83, P-80 AFTER CATAPRES O.1 MG PATCH, PATIENT STABLE NO SOB NOTES, STILL ON FACIAL MASK 5L, ASSIST TURN AND REPOSTION Q 2 HR. CONTINUED MONITORING.
[2018-01-28] MEDS: MEROPENEM 500 MG in IV NS 0.9% 50 ML IV SCH ×2 (10:05→21:59)
--- NOTE | 2018-01-28 13:00 | NUR ---
RN NOTES ASSESS PATIENT FOR ASPIRATION PRECAUTION, PATIENT HAS TOLERATING WELL SWALLOWING WELL, NO COUGHING , NO SOB. ADMINISTERED SCHEDULED MEDICATION CRUSHED AND MIX WITH APPLE SAUCE. BP-187/77, P-67. KEEP HEAD OF THE BED ELEVATED. CONTINUED MONITORING.
[2018-01-28 16:00] VITALS: BP 147/80
--- NOTE | 2018-01-28 17:00 | NUR ---
RN NOTES PATIENT ON FACE MUSK 10L SATURATION 90 / 92 %. SCHEDULED MEDICATION ADMINISTERED, BP-120/60, P- 77, ASSIST TURN AND REPOSTION Q 2 HR. CONTINUED MONITORING. PATIENT CONSTIPATED.
[2018-01-28 18:45] VITALS: BP 120/60
--- NOTE | 2018-01-28 18:45 | NUR ---
RN NOTES PATIENT HAVE A CHEST CONGESTION, AND WAS DESATURATING ON -84 TO 86 %, V/S TAKEN BP120/60, P-88. CALLED RT FOR SUCTIONING AND POSSIBLE BREATHING TREATMENT. NOTIFIED DR BARNHART FOR BREATHING TREATMENT, AND PATIENTS CONDITION WAITING FOR RESPOND. AFTER SUCTIONING PATIENT O2-89 TO 90 % WITH NON REBREATHER MASK 10L. HOB KEEP ELEVATED. PATIENT MORE CALM. PATIENT WILL D/C [facility] WITH HOSPICE TOMORROW. ENDORSED NIGHT NURSE FOR FOLLOW UP.
--- NOTE | 2018-01-28 19:30 | NUR ---
MS RN NOTES Report received. Patient received in bed, awake, HOB elevated. On continuous oxygen therapy @10 LPM via mask with no SOB noted. SpO2 @91-92%. Not in any type of distress. Safety measures in place. Remains in contact isolation for ESBL urine and MRSA of the wound. Will continue to monitor and assess patient.
[2018-01-28 20:56] VITALS: BP 104/54
[2018-01-29] MEDS: hydrALAZINE HCL 25 MG TABLET PO SCH ×3 (05:08→16:06)
--- NOTE | 2018-01-29 07:30 | NUR ---
RN MS NOTES PT IN BED, RESTING, ALERT TO SELF, NON VERBAL, NO FACIAL GRIMACING OR MOANING, NOT IN RESPIRATORY DISTRESS, CALL LIGHT WITHIN REACH, ISOLATION PRECAUTIONS OBSERVED, KEPT COMFORTABLE AND MANAGER TECHNICAL TRAINING BED.
[2018-01-29 08:00] VITALS: BP 132/71
[2018-01-29 08:02] LABS: CALCIUM, SERUM 9.1 mg/dL (8.5-10.1); CARBON DIOXIDE 25 mmol/L (21-32); CHLORIDE 106 mmol/L (98-107); GLUCOSE 77 mg/dL (74-106); POTASSIUM 4.5 mmol/L (3.5-5.1); SODIUM SERUM 138 mmol/L (136-145); UREA NITROGEN, BLOOD 30 mg/dL (7-18)
[2018-01-29] MEDS: VANCOMYCIN 500 MG in IV D5W 100 ML IV SCH (08:10)
[2018-01-29] MEDS: MEMANTINE HCL 5 MG TABLET PO SCH (09:01)
[2018-01-29] MEDS: HYDROGEL DRESSING 90 GM TUBE TP SCH (09:01)
[2018-01-29] MEDS: DAKINS QUARTER STRENGTH (0.125%) 480 ML BOTTLE TOP SCH (09:01)
[2018-01-29] MEDS: LACTOBACILLUS RHAMNOSUS GG 1 EACH CAP.SPRINK PO SCH ×2 (09:01→16:43)
[2018-01-29] MEDS: Z GUARD REMEDY 2 OZ OINT TP SCH (09:01)
[2018-01-29] MEDS: ASCORBIC ACID 500 MG TABLET PO SCH (09:01)
[2018-01-29] MEDS: NIFEdipine XL 60 MG TAB PO SCH ×2 (09:10→16:43)
[2018-01-29] MEDS: BENAZEPRIL HCL 20 MG TABLET PO SCH (09:11)
[2018-01-29] MEDS: MEROPENEM 500 MG in IV NS 0.9% 50 ML IV SCH (09:18)
--- NOTE | 2018-01-29 12:00 | NUR ---
RN MS NOTES PT IN BED, RESTING, ALERT TO SELF, NO SIGN OF PAIN OR DISTRESS, ON O2 AT 5LPM VIA N/C, O2 SAT AT 98%, KEPT HOB ELEVATED, ASSISTED WITH MEALS, ASPIRATION PRECAUTIONS OBSERVED, TURNED AND REPOSITIONED Q2 HOURS, KEPT CLEAN AND DRY, F/C INTACT AND PATENT.
--- NOTE | 2018-01-29 14:59 | NUR ---
RN MS NOTES PT IN BED, AWAKE, NO FACIAL GRIMACING, NOT IN DISTRESS, TOLERATING ROOM AIR AT THIS TIME, ASSISTED WITH MEALS, TOLERATING WELL, WOUND TREATMENTS DONE, DRESSING CHANGE DONE, TURNED AND REPOSITIONED Q2 HOURS, DISCHARGE ORDER GIVEN BY DR. BARNHART, REPORT GIVEN AND DISCHARGE INSTRUCTIONS GIVEN TO PEPITO EPSTEIN OF [facility], PT HAS NO BELONGINGS, AWAITING PT FINANCIAL DEALERS.
[2018-01-29 17:41] VITALS: BP 148/64
--- NOTE | 2018-01-29 18:23 | NUR ---
RN MS NOTES PT IN BED, AWAKE, NO FACIAL GRIMACING OR MOANING, RESPIRATIONS NORMAL, ON O2 AT 4LPM VIA N/C, O2 SAT OF 99%, F/C INTACT AND PATENT, BP IMPROVED TO 148/64 HR 81, TERMINAL CARMAN NOTIFIED AND SCHEDULED A NEW DIRECTOR OF DISTRICT OFFICE TIME OF 193, [facility] INFORMED REGARDING PT UPDATES, SPOKE WITH IMELDA EPSTEIN.
[2018-01-29 20:00] VITALS: BP 109/56
--- NOTE | 2018-01-29 20:00 | NUR ---
MS RN NOTES RECEIVED AWAKE, CONFUSED AND FORGETFUL. NOT IN ANY DISTRESS. NO SOB NOTED. NO S/SX OF ANY PAIN OR DISCOMFORT AT THIS TIME. WITH MIDLINE PATENT & INTACT WITH F/C DRAINING TO YELLOWISH OUTPUT MODERATE IN AMOUNT. CALL LIGHT WITHIN REACH. BED IN LOWEST POSITION. SR UP X 3 FOR SAFETY. CALLED AMBULANCE. ETA IS 9 MINS. WILL CONTINUE TO MONITOR.
--- NOTE | 2018-01-29 20:40 | NUR ---
MS RN NOTES AMBULANCE CAME IN AND PICKED UP PT. PT NOT IN ANY DISTRESS. NO SOB NOTED. DENIES ANY PAIN OR DISCOMFORT AT THIS TIME. VSS. AFEBRILE. REPORT GIVEN TO AMBULANCE PERSONNEL FOR CONTINUITY OF CARE. BELONGINGS SENT HOME WITH PT.
== END 2018-01-29 20:40 | DRG 579 ==
LOC: ER 15:26 → MED 18:14
PROVIDERS: ADMIT Internal Medicine; ATTEND Internal Medicine
PROC: 0KBN0ZZ Excision of Right Hip Muscle, Open Approach (ICD-10-PCS; principal; 2018-01-27)
DX: L89.214 Pressure ulcer of right hip, stage 4 (principal); E43 Unspecified severe protein-calorie malnutrition; R64 Cachexia; Z68.1 Body mass index [BMI] 19.9 or less, adult; G30.9 Alzheimer's disease, unspecified; F02.80 Dementia in other diseases classified elsewhere, unspecified severity, without behavioral disturbance, psychotic disturbance, mood disturbance, and anxiety; D63.8 Anemia in other chronic diseases classified elsewhere; I10 Essential (primary) hypertension; R79.89 Other specified abnormal findings of blood chemistry; R62.7 Adult failure to thrive; G40.409 Other generalized epilepsy and epileptic syndromes, not intractable, without status epilepticus; B96.5 Pseudomonas (aeruginosa) (mallei) (pseudomallei) as the cause of diseases classified elsewhere; B95.62 Methicillin resistant Staphylococcus aureus infection as the cause of diseases classified elsewhere; L89.154 Pressure ulcer of sacral region, stage 4
CPT/HCPCS: 36415; 36600; 71045-TC; 80048-TC; 80053-TC; 80076-TC; 80202-TC; 82306; 82378; 82728-TC; 82746; 83540-TC; 83615-TC; 84443-TC; 84550-TC; 85025-TC; 85045-TC; 85610-TC; 85652-TC; 86850-TC; 87070-TC; 87081-TC; 87186-TC; 92526; 92611-TC; A4216; A4606; A6248; A6253; A6402; A6403; J1650; J2185; J2543; J3370; J3490; J7030; J7040; J7050; J7060; Z7610

== ENCOUNTER 2018-03-21 11:27 | Inpatient (IN) | payer MEDICARE, OTHER ==
[2018-03-21] VITALS (11 sets, daily range): BP systolic 94–130; BP diastolic 43–72
[~2018-03-21] VITALS: Ht 157.5 cm; Wt 29.6 kg
[~2018-03-21 11:27] MED LIST: ACET-2605 PO; ACET-868 PO; ASCO500T9 PO; BENA20TA9 PO; CARB200T8 PO; FERR325T23 PO; HYDR-4076 PO; MAGN400O6 PO; MEMA5TAB PO; MIRT15TA PO; MULT-213 PO; NA P133E RC; NIFE60TA69 PO; ZINC220T PO
--- NOTE | 2018-03-21 11:35 | NUR ---
PT BIB PRIVATE AMBULANCE TO ER BED 09. WAS SENT BY DR BARNHART FOR SACRAL WOUND EVAL. PT PLACED ON MONITOR. HYPOTENSIVE LIABILITY CLAIMS REPRESENTATIVE. GOWNED. AWAITING MD COLON.
--- NOTE | 2018-03-21 11:37 | NUR ---
Dr. Montez Hernandez.
--- NOTE | 2018-03-21 11:38 | NUR ---
DR PARADA AT BEDSIDE FOR EVAL.
[2018-03-21] MEDS ORDERED: AMLO10TA2 PO (11:55)
[2018-03-21] MEDS ORDERED: ACID1TAB12 PO (11:55)
[2018-03-21] MEDS ORDERED: CARB100T51 PO (11:55)
[2018-03-21] MEDS ORDERED: ACET-2605 PO ×2 (11:55)
[2018-03-21] MEDS ORDERED: CLON1PAT TD (11:55)
[2018-03-21] MEDS ORDERED: COLL30OI TP (11:58)
[2018-03-21] MEDS ORDERED: IV NS 0.9% 500 ML BAG IV ONE (12:00)
[2018-03-21] MEDS ORDERED: [UNRECOGNIZED DRUG - CODE] TP (12:01)
[2018-03-21 12:21] LABS: BASOPHILS % (AUTO) 0.3 % (0.0-2.0); EOSINOPHILS % (AUTO) 1.5 % (0.0-6.0); HEMATOCRIT 21 % (33-45); LYMPHOCYTES # (AUTO) 0.8 /CMM (0.8-4.8); LYMPHOCYTES % (AUTO) 10.2 % (20.0-44.0); MEAN CORPUSCULAR HEMOGLOBIN 28 PG (26.0-33.0); MEAN CORPUSCULAR HGB CONC 32 g/dl (31.0-36.0); MEAN CORPUSCULAR VOLUME 88 fL (82-100); MONOCYTES # (AUTO) 0.3 /CMM (0.1-1.30); MONOCYTES % (AUTO) 3.9 % (2.0-12.0); NEUTROPHILS # (AUTO) 6.4 /CMM (1.8-8.9); NEUTROPHILS % (AUTO) 84.1 % (43.0-81.0); PLATELET COUNT (AUTO) 334 /CMM (150-450); RDW COEFFICIENT OF VARIATION 15.5 (11.5-15.0); WHITE BLOOD COUNT (AUTO) 7.6 K/uL (4.3-11.0)
[2018-03-21 12:25] LABS: HEMOGLOBIN 6.7 g/dL (11.5-14.8)
[2018-03-21 12:27] LABS: CALCIUM, SERUM 9.1 mg/dL (8.5-10.1); CARBON DIOXIDE 24 mmol/L (21-32); GLUCOSE 98 mg/dL (74-106); POTASSIUM 3.7 mmol/L (3.5-5.1)
--- NOTE | 2018-03-21 12:28 | NUR ---
DR PARADA MADE AWARE OF CRITICAL LAB RESULTS. NO NEW ORDERS AT THIS TIME.
[2018-03-21 12:30] LABS: CHLORIDE 134 mmol/L (98-107); SODIUM SERUM 168 mmol/L (136-145); UREA NITROGEN, BLOOD 100 mg/dL (7-18)
--- NOTE | 2018-03-21 12:50 | NUR ---
REPORT GIVEN TO KIM. PT AWAITING TRANSFER TO FLOOR.
[2018-03-21 12:51] LABS: BAND % (MANUAL) 4 % (0.0-5.0); EOSINOPHILS % (MANUAL) 2 % (0-4); LYMPHOCYTES % (MANUAL) 8 % (16-48); MONOCYTES % (MANUAL) 4 % (0-11.0); NEUTROPHILS % (MANUAL) 82 (42-76)
--- NOTE | 2018-03-21 13:00 | NUR ---
REPORT RECEIVED FROM CAROLANN SANTOS RN REGARDING PATIENT'S CONDITION. WILL CARRY OUT ORDERS SOON PATIENT IS BROUGHT TO THE UNIT/
--- NOTE | 2018-03-21 13:30 | NUR ---
LAY OUT INSPECTORSUPERVISOR ROD PLACING NOTE PATIENT WAS BROUGHT FROM THE ER ON A GURNEY. PATIENT IS AWAKE. DISORIENTED, NON-VERBAL. RESPONDS TO PHYSICAL STIMULI. ON 3L O2 VIA NC, TOLERATING WELL. O2 AT 100 %. VITAL SIGNS STABLE: BP: 111/43, HR: 58, RR: 18, TEMP: 95.6. IN NO APPARENT DISTRESS OR DISCOMFORT AT THIS TIME. PATIENT WAS TRANSFERRED TO BED. MADE COMFORTABLE. PHYSICAL ASSESSMENT COMPLETE TO THE MAXIMUM OF ABILITY. PATIENT IS CONTRACTED WITH SEVER MUSCLE WASTING. ESTRELLA CATHETER IN PLACE, DRAINING CHRIS COLOR CLEAR URINE. LEFT HAND IVC 20G WITH SL. PATENT AND INTACT. RIGHT FOREARM IVC IN PLACE, WAS PLACED IN PRISON. NO BELONGINGS PRESENT WITH PATIENT. SKIN ASSESSMENT COMPLETE, PHOTOS TAKEN PLACED IN CHART. MULTIPLE PRESSURE WOUNDS PRESENT ON BODY. PATIENT WAS PLACED ON TELE MONITORING SINUS BRADYCARDIA WITH HR OF [address] BARNHART WAS PAGED TO NOTIFY REGARDING PATIENT'S ARRIVAL AND TO RECEIVE FURTHER ORDERS. MADE PATIENT COMFORTABLE IN BED. SAFETY MEASURES APPLIED, BED IN LOW LOCKED POSITION, SIDE RAILS UP X3, CALL LIGHT WITHIN EASY REACH. WILL CONTINUE TO MONITOR AND CARRY OUT ADMISSION ORDERS.
--- NOTE | 2018-03-21 14:30 | NUR ---
RECEIVED CALL BACK FROM DR BARNHART. DOCTOR IS COMING TO SEE THE PATIENT. WAS GIVEN TELEPHONE ORDERS BEFORE DR ARRIVE TO THE UNIT. ORDER TO " ADMIT THE PATIENT TO TELEMETRY FLOOR", "FULL CODE", START ON "D5W @ 100ML/HR CONTINUOUS INFUSION", "POTASSIUM CHLORIDE 40MEQ IV DAILY", "TYPE AND CROSS", "1 UNIT OF PACKED RBC", "HEPARIN 5000 UNIT SQ Q12 HRS", " DILAUDID 0.125 MG Q2HRS NEEDED FOR PAIN", "DAILY BMP", "PUREE DIET", "WOUND CONSULT". ALL ORDERS READ BACK AND VERIFIED. WILL CARRY OUT AND CONTINUE TO MONITOR.
[2018-03-21] MEDS ORDERED: HYDROMORPHONE INJ 2 MG/ML DISP.SYRIN IV PRN (15:00)
[2018-03-21] MEDS: POTASSIUM CL. PREMIX PERIPHER. 50 ML IV SCH ×4 (15:05→19:49)
[2018-03-21] MEDS: HEPARIN SODIUM, PORCINE 5000 UNITS/1 ML VIAL SQ SCH (15:11)
--- NOTE | 2018-03-21 17:35 | NUR ---
ATTEMPTED TO OBTAIN CONSENT FOR BLOOD TRANSFUSION. 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 DR. BARNHART WAS NOT AVAILABLE IN THE UNIT REPORTED TO MERCERIZER MACHINE OPERATOR JINA AND THE TROUBLE SHOOTING MECHANIC. CONSENT WAS OBTAINED FROM TODAY'S HOSPITALIST CHINYERE SOTO NP. CONSENT WAS PLACED IN CHART. PATIENT IS CURRENTLY RUNNING POTASSIUM. WILL ENDORSE TO PM NURSE TO CARRY OUT BLOOD TRANSFUSION ORDER. Addendum: 03/21/18 at 2034 by WEN MAYORGA RN WAS INFORMED BY MERCERIZER MACHINE OPERATOR WHO CLARIFIED WITH THE TROUBLE SHOOTING MECHANIC, PER HOSPITAL PROTOCOL FOR NON-EMERGENT BLOOD TRANSFUSION ONE 'S SIGNATURE IS SUFFICIENT ON CONSENT FORM IF PATIENT IS UNABLE TO SIGN.
[2018-03-21 19:28] LABS: THYROID STIMULATING HORMONE 7.882 uIU/mL (0.358-3.74)
--- NOTE | 2018-03-21 20:00 | NUR ---
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 PATIENT AWAKE ON BED ON TIMMONS'S POSITION WITH PATENT PERIPHERAL IV LINE L HAND G#20 WITH KCL INFUSING WELL ORDERED. WITH PATENT INDWELLING F/C ATTACHED TO URINE BAG WITH 50ML YELLOW URINE OUTPUT. ON TELE MONITOR WITH SINUS ILEANA 57. HGB OF 6.7, FOR BT ORDERED. KEPT CLEAN, DRY AND COMFORTABLE. WILL CONTINUE TO MONITOR
--- NOTE | 2018-03-21 20:29 | NUR ---
MELTER SUPERVISOR OPEN HEARTH FURNACE CLOSING NOTE PATIENT IN BED, SLEEPING, AROUSED WITH PHYSICAL STIMULI, NON-VERBAL, DEMENTED. DISORIENTED. UNABLE TO FOLLOW COMMANDS. ON 3L O2 VIA NC. TOLERATING WELL. IN NO APPARENT DISTRESS OR DISCOMFORT AT THIS TIME. RESPIRATIONS EVEN AND UNLABORED. ON TELE MONITORING WITH SB HR OF 56. INCONTINENT, ESTRELLA CATHETER IN PLACE DRAINING CHRIS COLOR YELLOW URINE. RIGHT HAND IVC 20G WITH KCL RUNNING AT 50ML/HR. RIGHT FA IVC. NOT IN USE , WAS PLACED IN NURSING FACILITY. KEPT CLEAN AND COMFORTABLE, ALL NEEDS ATTENDED. BED IN LOW LOCKED POSITION, SIDE RAILS UP X3, BED ALARM ON, CALL LIGHT WITHIN REACH. WILL ENDORSE TO PM NURSE FOR RENETTA.
[2018-03-21 20:37] LABS: RETICULOCYTE COUNT 1.3 % (0.6-2.5)
--- NOTE | 2018-03-21 21:52 | NUR ---
SALSA DANCE INSTRUCTOR NOTES PATIENT HAS 1 PRBC ORDER FOR TRANSFUSION. MD SIGNED CONSENT. V/S TAKEN AND RECORDED. WILL STAY WITH THE PATIENT FOR 30 MINS TO MONITOR TRANSFUSION REACTION.
[2018-03-22] VITALS (10 sets, daily range): BP systolic 100–144; BP diastolic 51–78
--- NOTE | 2018-03-22 01:09 | NUR ---
prbc transfusion completed: above 1unit of prbc transfusion completed at this time. vs taken and recorded. no blood transfusion reaction noted. pt awake, remains non verbal on 2l oxygen via nc respiration even and unlabored. will continue monitoring pt for any s/s of post transfusion reaction.
--- NOTE | 2018-03-22 05:26 | NUR ---
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
--- NOTE | 2018-03-22 06:39 | NUR ---
THIRD COOK CLOSING NOTES Patient awake on bed on semi-Sierra's position with patent peripheral IV line G#20 l hand with D5W infusing well @ 75 ml/hr as ordered. Patient has just received blood transfusion 1 PRBC as ordered, tolerated the procedure well, no ASE was noted. Wound care done, wound consult requested. With patent indwelling DC with yellow urine output @ 350 ml level drained by the POULTRY FEED SUPERVISOR. 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 On telemonitor with sinus fiordaliza at <60s at rest. Kept clean dry and comfortable. Afebrile the whole shift. Endorsed.
[2018-03-22 07:27] LABS: CALCIUM, SERUM 8.8 mg/dL (8.5-10.1); CARBON DIOXIDE 18 mmol/L (21-32); CREATININE 1.9 mg/dL (0.6-1.3); GLUCOSE 138 mg/dL (74-106); POTASSIUM 4.7 mmol/L (3.5-5.1)
--- NOTE | 2018-03-22 07:34 | NUR ---
HORSE STUD WORKER OPENING NOTES RECEIVED PATIENT AWAKE IN BED IN NO ACUTE SIGNS OF DISTRESS. HOB IS ELEVATED. A/0 X0. NON-VERBAL, CALM WITH NO SIGNS OF FACIAL GRIMACING OF MOANING NOTED AT THIS TIME. ON 02 VIA N/C @ 2LPM, TOLERATING WELL, BREATHING EVEN AND UNLABORED. PATIENT ON TELE MONITORING WITH CURRENT READING OF SINUS RHYTHM WITH HR OF 62. IV ACCESS ON LEFT HAND PATENT AND INTACT, IVF OF D5W @ 100ML/HR INFUSING, NO S/S OF INFILTRATIONS NOTED. ESTRELLA IN PLACE WITH CLOUDY YELLOW URINE OUTPUT NOTED TO URINARY BAG. SAFETY MEASURES IN PLACE, BED IN LOW LOCKED POSITION, SIDE RAILS UP X2, CALL LIGHT WITHIN EASY REACH. WILL CONTINUE TO MONITOR..
[2018-03-22 07:37] LABS: CHLORIDE 134 mmol/L (98-107); SODIUM SERUM 166 mmol/L (136-145)
[2018-03-22 07:38] LABS: UREA NITROGEN, BLOOD 101 mg/dL (7-18)
[2018-03-22] MEDS: HEPARIN SODIUM, PORCINE 5000 UNITS/1 ML VIAL SQ SCH ×2 (09:00→21:42)
--- NOTE | 2018-03-22 09:04 | NUR ---
RN NOTES HEPARIN 5,000U NOT ADMINISTERED, PT WITH LOW HGB/HCT AND JUST HAD 1 BAG OF BLOOD TRANSFUSION. WILL CONTINUE TO MONITOR.
[2018-03-22 09:19] LABS: BASOPHILS % (AUTO) 0.1 % (0.0-2.0); EOSINOPHILS % (AUTO) 1.6 % (0.0-6.0); HEMATOCRIT 28 % (33-45); HEMOGLOBIN 8.3 g/dL (11.5-14.8); LYMPHOCYTES # (AUTO) 0.6 /CMM (0.8-4.8); LYMPHOCYTES % (AUTO) 7.6 % (20.0-44.0); MEAN CORPUSCULAR HEMOGLOBIN 28 PG (26.0-33.0); MEAN CORPUSCULAR HGB CONC 30 g/dl (31.0-36.0); MEAN CORPUSCULAR VOLUME 92 fL (82-100); MONOCYTES # (AUTO) 0.2 /CMM (0.1-1.30); MONOCYTES % (AUTO) 2.7 % (2.0-12.0); NEUTROPHILS # (AUTO) 7.3 /CMM (1.8-8.9); PLATELET COUNT (AUTO) 338 /CMM (150-450); RDW COEFFICIENT OF VARIATION 16.4 (11.5-15.0); RED BLOOD CELL COUNT(AUTO) 3.02 MIL/uL (4.0-5.2); WHITE BLOOD COUNT (AUTO) 8.3 K/uL (4.3-11.0)
--- NOTE | 2018-03-22 10:39 | NUR ---
RN NOTES PT WITH ELEVATED NA 166, CHLORIDE 134, BUN 101, CREATININE 1.9. HGB 8.[address] BARNHART MADE AWARE WITH NO NEW ORDER MADE
[2018-03-22] MEDS: IV D5W 1,000 ML IV PRN ×2 (10:55→21:52)
--- NOTE | 2018-03-22 17:41 | NUR ---
RN NOTES PATIENT SEEN BY BILINGUAL TEACHER AIDE TODAY WITH RECOMMENDATION TO GIVE ENSURE ENLIVE [address] BARNHART CAME TO UNIT AND INFORMED AND IN AGREEMENT. WILL CONTINUE TO MONITOR.
--- NOTE | 2018-03-22 18:36 | NUR ---
RAMP FLIGHT ATTENDANT CLOSING NOTES PATIENT LYING IN BED AT MODERATE HIGH BACKREST POSITION. A/0 X0. NON-VERBAL AND OPEN HER EYES. PATIENT ON TELE MONITORING WITH CURRENT READING OF SINUS RHYTHM/ILEANA WITH HR OF 57-64. ON 02 VIA N/C @ 2LPM, TOLERATING WELL, BREATHING EVEN AND UNLABORED. IV ACCESS ON LEFT HAND PATENT AND INTACT, IVF OF D5W @ 100ML/HR INFUSING, NO S/S OF INFILTRATIONS NOTED. ESTRELLA IN PLACE WITH CLOUDY YELLOW URINE OUTPUT NOTED TO URINARY BAG, ESTRELLA CARE DONE. PT TURNED AND REPOSITIONED IN BED Q 2HRS AND PRN. ALL SAFETY MEASURES KEPT IN PLACE, BED IN LOW/LOCKED POSITION WITH SIDE RAILS UP X3. CALL LIGHT WITHIN EASY REACH. ALL NEEDS AND CARE PROVIDED WELL. WILL ENDORSE TO RUNSTITCHING MACHINE OPERATOR NURSE FOR RENETTA
--- NOTE | 2018-03-22 19:45 | NUR ---
TELE/RN OPENING NOTES PT RECEIVED ON 2L O2 VIA NC. NONVERBAL, OPENS EYES TO TACTILE STIMULI. BREATHING EVEN AND UNLABORED. NO S/S OF PAIN OR ACUTE DISTRESS NOTED AT THIS TIME. ON TELE MONITOR SHOWING SB 58. IV TO LEFT HAND LEAKING. NEW IV TO RIGHT UPPER ARM #22 PLACED AND IVF RESUMED ORDERED. BED IN LOW/LOCKED POSITION WITH CALL LIGHT IN REACH. BILATERAL UPPER SIDE RAILS IN PLACE AND BED ALARM ON. ISOLATION PRECAUTIONS IMPLEMENTED. WILL CONTINUE TO MONITOR.
--- NOTE | 2018-03-22 20:39 | NUR ---
TELE/RN NOTES PAGED DR. BARNHART TO CLARIFY IF HE WOULD LIKE TO ADMINISTER SCHEDULE HEPARIN TONIGHT. S/P 1 UNIT PRBC LAST NIGHT. AWAITING FOR CALL BACK. Addendum: 03/22/18 at 2043 by EVARISTO OLIVAS RN PER DR. BARNHART CONTINUE HEPARIN ADMINISTRATION ORDERED.
[2018-03-23] VITALS: BP 149/76
[2018-03-23 04:00] VITALS: BP 152/64
--- NOTE | 2018-03-23 06:55 | NUR ---
TELE/RN CLOSING NOTES PT WITH EYES CLOSED ON 2L O2 VIA NC. NONVERBAL, OPENS EYES TO TACTILE STIMULI. BREATHING EVEN AND UNLABORED. NO S/S OF PAIN OR ACUTE DISTRESS NOTED AT THIS TIME. TELE MONITOR SB 50. IV TO RIGHT UPPER ARM REMAINS PATENT AND INTACT RUNNING IVF ORDERED. NO SIGNIFICANT CHANGES OVERNIGHT. TURNED/REPOSITIONED Q2H. HEELS OFFLOADED. BED IN LOW/LOCKED POSITION WITH CALL LIGHT IN REACH. BILATERAL UPPER SIDE RAILS IN PLACE AND BED ALARM ON. ISOLATION PRECAUTIONS IMPLEMENTED THROUGHOUT SHIFT. WILL ENDORSE TO DAY SHIFT RN RENETTA.
[2018-03-23 08:00] VITALS: BP 135/95
[2018-03-23 08:05] LABS: CALCIUM, SERUM 8.2 mg/dL (8.5-10.1); CARBON DIOXIDE 16 mmol/L (21-32); CHLORIDE 124 mmol/L (98-107); CREATININE 1.5 mg/dL (0.6-1.3); GLUCOSE 126 mg/dL (74-106); POTASSIUM 3.9 mmol/L (3.5-5.1); SODIUM SERUM 152 mmol/L (136-145)
[2018-03-23 08:12] LABS: UREA NITROGEN, BLOOD 85 mg/dL (7-18)
[2018-03-23] MEDS: IV D5W 1,000 ML IV PRN ×2 (08:40→19:58)
[2018-03-23] MEDS: ENSURE ENLIVE 237 ML LIQUID (VANILLA) PO SCH ×3 (08:47→18:16)
[2018-03-23] MEDS: HEPARIN SODIUM, PORCINE 5000 UNITS/1 ML VIAL SQ SCH ×2 (08:47→21:32)
[2018-03-23 12:00] VITALS: BP 147/69
[2018-03-23 15:59] VITALS: BP 142/69
[2018-03-23 20:00] VITALS: BP 141/88
[2018-03-24] VITALS: BP 145/84
[2018-03-24 04:00] VITALS: BP 133/69
[2018-03-24 06:20] LABS: CALCIUM, SERUM 8.1 mg/dL (8.5-10.1); CARBON DIOXIDE 18 mmol/L (21-32); CHLORIDE 115 mmol/L (98-107); CREATININE 1.2 mg/dL (0.6-1.3); GLUCOSE 74 mg/dL (74-106); POTASSIUM 3.6 mmol/L (3.5-5.1); SODIUM SERUM 146 mmol/L (136-145); UREA NITROGEN, BLOOD 63 mg/dL (7-18)
--- NOTE | 2018-03-24 06:39 | NUR ---
RADIOLOGIST CHIEF OF BREAST IMAGING NOTES PT AWAKE. NON VERBAL. NOT IN ANY DISTRESS. NO SOB NOTED. NO S/SX OF ANY PAIN OR DISCOMFORT AT THIS TIME. ON TELE SR @ 63 WITH IVF INFUSING WELL. AM CARE DONE. MONITORED ACCORDINGLY. CALL LIGHT WITHIN REACH. BED IN LOWEST POSITION. SR UP X 3 WITH BED ALARM ON FOR SAFETY. WILL ENDORSE TO NEXT SHIFT.
--- NOTE | 2018-03-24 07:30 | NUR ---
Tele/RN - Assessment Patient obtunded, no s/s of pain, not in any form of distress, Tele shows SB with occ PACs. Skin assessment done, will do wound care as ordered. Rhoades catheter patent for skin/wound management. All skin protection and pressure ulcer prevention measures in place per plan of care. Continue IVF D5W at 100 ml/hr to maintain hydration. Fall, aspiration and contact precautions maintained. Will continue to monitor closely.
[2018-03-24 08:00] VITALS: BP 127/55
[2018-03-24] MEDS: ENSURE ENLIVE 237 ML LIQUID (VANILLA) PO SCH ×3 (08:15→17:31)
[2018-03-24] MEDS: ALLOPURINOL 100 MG TABLET PO SCH (08:15)
[2018-03-24] MEDS: HEPARIN SODIUM, PORCINE 5000 UNITS/1 ML VIAL SQ SCH ×2 (08:16→20:39)
[2018-03-24] MEDS: CADEXOMER IODINE 40 GM TUBE TP SCH (08:20)
[2018-03-24] MEDS: IV D5W 1,000 ML IV PRN ×2 (08:24→18:15)
[2018-03-24 12:00] VITALS: BP 146/80
[2018-03-24 16:00] VITALS: BP 126/68
--- NOTE | 2018-03-24 17:44 | NUR ---
Tele/RN - Assessment Patient lethargic, no s/s of pain, remain afebrile, no evidence of resp distress, tele shows SR. Patient with very poor appetite, Dr. Herrmann is aware. Continue IVF D5W at 100 ml/hr to maintain hydration. Fall, aspiration and contact precautions maintained. Will continue with current plan of care.
--- NOTE | 2018-03-24 19:36 | NUR ---
TELE/RN OPENING NOTES PATIENT IN BED, AWAKE, OPENS EYES AND MAKE SOUNDS, RESPIRATION DIMINISHED AND OXYGEN AT 3L 90%, REQUIRE TURN AND REPOSITION FOR COMFORT. WILL MONITOR, ON WOUND TREATMENT BLE AND SACRAL, KEEP COMFORTABLE, WILL MONITOR. RECIEVD ENDORSEMENT FROM AM RN FOR RENETTA. PATIENT ON IV FLUID ON RIGHT HAND, IV SITE W/ NO S/S OF INFILTRATION.
[2018-03-24 20:00] VITALS: BP 113/54
--- NOTE | 2018-03-24 20:19 | NUR ---
TELE/RN NOTES TELE READING AT SR 80
[2018-03-25] VITALS: BP 115/63
[2018-03-25 04:00] VITALS: BP 125/85
[2018-03-25] MEDS: IV D5W 1,000 ML IV PRN ×2 (06:06→17:04)
--- NOTE | 2018-03-25 06:17 | NUR ---
314-2 PATIENT ABLE TO SLEEP INTERMITTENTLY, PROVIDED WOUND CARE. ESTRELLA INTACT, DRAINING DARK COLOR URINE , WOUND TREATMENT PERFORMED, REPOSITIONED AND CARED FOR, WILL MONITOR AND ENDORSE TO AM RN.
[2018-03-25 06:51] LABS: CALCIUM, SERUM 8.1 mg/dL (8.5-10.1); CARBON DIOXIDE 18 mmol/L (21-32); CHLORIDE 111 mmol/L (98-107); CREATININE 1.1 mg/dL (0.6-1.3); GLUCOSE 102 mg/dL (74-106); POTASSIUM 3.1 mmol/L (3.5-5.1); SODIUM SERUM 142 mmol/L (136-145); UREA NITROGEN, BLOOD 43 mg/dL (7-18)
--- NOTE | 2018-03-25 07:30 | NUR ---
RN OPENING NOTES PT RECEIVED IN BED AT LOWEST AND LOCKED POSITION WITH SIDE RAILS UP X2, A/O X1, NO S/S OF DISTRESS OR PAIN NOTED, CURRENTLY ON O2 3L VIA NC SATING 99%, ON TELE MONITOR - SR 70S, HAS ESTRELLA IN PLACE, IV IS PATENT AND INTACT, WOUND TREATMENT NEEDED ON BLE AND SACRAL AREA, CALL LIGHT WITHIN REACH, WILL CONTINUE TO MONITOR AND ASSESS
[2018-03-25 08:00] VITALS: BP 141/94
[2018-03-25] MEDS: ALLOPURINOL 100 MG TABLET PO SCH (08:19)
[2018-03-25] MEDS: CADEXOMER IODINE 40 GM TUBE TP SCH (08:20)
[2018-03-25] MEDS: HEPARIN SODIUM, PORCINE 5000 UNITS/1 ML VIAL SQ SCH ×2 (08:20→21:23)
[2018-03-25] MEDS: ENSURE ENLIVE 237 ML LIQUID (VANILLA) PO SCH ×3 (08:27→17:13)
--- NOTE | 2018-03-25 09:46 | NUR ---
WOUND CARE CONSULT: PT PRESENTS WITH CACHEXIA AND MULTIPLE WOUNDS WITH FOUL ODOR AND NECROTIC TISSUE TO SACRUM, BUTTOCKS AND RT HIP, PRESENT ON ADMISSION. RECOMMENDATIONS MADE FOR WOUND CARE AND SKIN PROTECTION. DISCUSSED WITH NURSING STAFF. DEFER TO DPM FOR LOWER EXTREMITIES. WILL SEE PRN. PT ON FIRST STEP LOW AIRLOSS MATTRESS. MD IN AGREEMENT WITH PLAN OF CARE.
[2018-03-25] MEDS ORDERED: Z GUARD REMEDY 4 OZ OINT TP PRN (10:00)
[2018-03-25] MEDS: DAKINS QUARTER STRENGTH (0.125%) 480 ML BOTTLE TOP SCH (11:07)
[2018-03-25] MEDS: POTASSIUM CHLORIDE 20 MEQ TAB.PRT.SR PO SCH ×2 (11:07→11:56)
[2018-03-25] MEDS: Z GUARD REMEDY 4 OZ OINT TP SCH (11:56)
[2018-03-25 16:00] VITALS: BP 152/71
[2018-03-25] MEDS: HYDROMORPHONE 1 MG/1 ML DISP.SYRIN IV PRN (16:14)
--- NOTE | 2018-03-25 18:00 | NUR ---
GREEN BUILDING DESIGN SPECIALIST CLOSING NOTES PT IN BED AT LOWEST AND LOCKED POSITION WITH SIDE RAILS UP X2, A/O X0-1, NO S/S OF DISTRESS OR PAIN NOTED, CURRENTLY ON O2 3L VIA NC SATING 97%, ON TELE MONITOR - SR 70S, HAS ESTRELLA IN PLACE, IV IS PATENT AND INTACT, WOUND TREATMENT PERFORMED, ALL NEEDS ATTENDED TO, SAFETY PRECAUTIONS IN PLACE, CALL LIGHT WITHIN REACH, WILL ENDORSE TO NIGHT NURSE FOR CONTINUITY OF CARE.
--- NOTE | 2018-03-25 19:15 | NUR ---
TELE/RN NOTES RECEIVED PT. LYING IN BED RESTING. PT. IS NON-VERBAL, RESPONDS TO TACTILE STIMULI. BREATHING EVEN AND UNLABORED ON 3LPM O2 VIA NC. NO SOB, RESPIRATORY DISTRESS OR S/S OF PAIN NOTED AT THIS TIME. PT. WITH EXTERNAL REGIONAL CLINICAL DIRECTOR PRESENT AND INTACT CURRENT RHYTHM = SINUS RHYTHM HR 79. PT. WITH RIGHT HAND 22 GAUGE PERIPHERAL IV PRESENT, PATENT AND INTACT ADMINISTERING TO PT. D5W @ 100ML/HR. PT. WITH ESTRELLA CATHETER PRESENT, PATENT AND INTACT. BED LOCKED AND IN LOWEST POSITION, SIDE RAILS UP X3, BED ALARM ON, WILL CONTINUE TO MONITOR.
[2018-03-25 20:02] VITALS: BP 125/75
--- NOTE | 2018-03-26 06:29 | NUR ---
TELE/RN NOTES PT. IS LYING IN BED RESTING. PT. IS NON-VERBAL, RESPONDS TO TACTILE STIMULI. BREATHING EVEN AND UNLABORED ON 3LPM O2 VIA NC. NO SOB, RESPIRATORY DISTRESS OR S/S OF PAIN NOTED AT THIS TIME. PT. WITH EXTERNAL RESAWYER PRESENT AND INTACT CURRENT RHYTHM = SINUS RHYTHM HR 76. PT. WITH LEFT UPPER ARM 22 GAUGE PERIPHERAL IV PRESENT, PATENT AND INTACT ADMINISTERING TO PT. D5W @ 100ML/HR. ALL PT. NEEDS MET. PT. OFFLOADED, TURNED AND REPOSITIONED Q2H AND NEEDED. PT. WITH ESTRELLA CATHETER PRESENT, PATENT AND INTACT. BED LOCKED AND IN LOWEST POSITION, SIDE RAILS UP X3, BED ALARM ON, WILL ENDORSE TO [facility] NURSE FOR CONTINUITY OF CARE. Addendum: 03/26/18 at 0640 by SANTIAGO CM RN PT. NO LONGER TELEMETRY PT. INCORRECT PATIENT HEART RHYTHM AND RATE DOCUMENTED.
[2018-03-26] MEDS: IV D5W 1,000 ML IV PRN ×2 (06:49→18:59)
--- NOTE | 2018-03-26 07:30 | NUR ---
LEATHER PIECE INSPECTOR OPENING NOTES PT RECIEVED IN BED IN LOWEST AND LOCKED POSITION WITH SIDE RAILS UP X2, A/O X1, NONVERBAL AND OPENS EYES, BREATHING IS EVEN AND UNLABORED, ON O2 VIA NC 3L, NO S/S OF PAIN OR DISTRESS NOTED, ON TELE MONITOR - SR 70S, LES 22G IV IS PATENT AND INTACT WITH IVF RUNNING AT 100ML/HR, SAFETY PRECAUTIONS IN PLACE, CALL LIGHT WITHIN REACH, WILL CONTINUE TO MONITOR AND ASSESS
[2018-03-26 07:37] LABS: CALCIUM, SERUM 8.4 mg/dL (8.5-10.1); CARBON DIOXIDE 16 mmol/L (21-32); CHLORIDE 107 mmol/L (98-107); CREATININE 0.8 mg/dL (0.6-1.3); GLUCOSE 92 mg/dL (74-106); POTASSIUM 3.3 mmol/L (3.5-5.1); SODIUM SERUM 138 mmol/L (136-145); UREA NITROGEN, BLOOD 32 mg/dL (7-18)
[2018-03-26 08:00] VITALS: BP 163/81
[2018-03-26] MEDS: ALLOPURINOL 100 MG TABLET PO SCH (08:22)
[2018-03-26] MEDS: Z GUARD REMEDY 4 OZ OINT TP SCH (08:24)
[2018-03-26] MEDS: DAKINS QUARTER STRENGTH (0.125%) 480 ML BOTTLE TOP SCH (08:24)
[2018-03-26] MEDS: ENSURE ENLIVE 237 ML LIQUID (VANILLA) PO SCH ×3 (08:24→17:07)
[2018-03-26] MEDS: HEPARIN SODIUM, PORCINE 5000 UNITS/1 ML VIAL SQ SCH ×2 (08:30→21:00)
[2018-03-26] MEDS: CADEXOMER IODINE 40 GM TUBE TP SCH (08:39)
[2018-03-26] MEDS ORDERED: POTASSIUM CHLORIDE 20 MEQ TAB.PRT.SR PO SCH (11:30)
[2018-03-26] MEDS: FOLIC ACID 1 MG TABLET PO SCH (13:14)
[2018-03-26] MEDS: HYDROMORPHONE 1 MG/1 ML DISP.SYRIN IV PRN (14:05)
[2018-03-26 16:00] VITALS: BP 162/67
--- NOTE | 2018-03-26 18:00 | NUR ---
MS RN CLOSING NOTES PT IN BED IN LOWEST AND LOCKED POSITION WITH SIDE RAILS UP X2, A/O X 0-1, NONVERBAL AND OPENS EYES, BREATHING IS EVEN AND UNLABORED, ON O2 VIA NC 3L, NO S/S OF PAIN OR DISTRESS NOTED, LES 22G IV IS PATENT AND INTACT WITH IVF RUNNING AT 100ML/HR, WOUND CARE PERFORMED, ALL NEEDS ATTENDED TO, SAFETY PRECAUTIONS IN PLACE, CALL LIGHT WITHIN REACH, WILL ENDORSE TO HOUSE FATHER NURSE
--- NOTE | 2018-03-26 19:30 | NUR ---
MS RN OPENING NOTES PT IN BED A/O X 1,PT NONVERBAL, BREATHING IS EVEN AND UNLABORED, ON O2 VIA NC 3L, NO S/S OF PAIN OR DISTRESS NOTED, LES 22G IV IS PATENT AND INTACT WITH IVF RUNNING AT 100ML/HR,MULTIPLE WOUNDS. SAFETY PRECAUTIONS IN PLACE, CALL LIGHT WITHIN REACH, PT IN BED IN LOWEST AND LOCKED POSITION WITH SIDE RAILS UP X2. WILL CONTINUE TO MONITOR
[2018-03-26 20:00] VITALS: BP 135/95
--- NOTE | 2018-03-27 06:50 | NUR ---
MS RN CLOSING NOTES PT IN BED A/O X 1,PT NONVERBAL, BREATHING IS EVEN AND UNLABORED, ON O2 VIA NC 3L, NO S/S OF PAIN OR DISTRESS NOTED, LES 22G IV IS PATENT AND INTACT WITH IVF RUNNING AT 75ML/HR. SAFETY PRECAUTIONS IN PLACE, CALL LIGHT WITHIN REACH, BED IN LOWEST AND LOCKED POSITION WITH SIDE RAILS UP X2. WILL ENDORSE TO NEXT SHIFT FOR RENETTA.
--- NOTE | 2018-03-27 07:00 | NUR ---
RN OPENING NOTES RECEIVED PT. IN BED A&OXO. PT. OPEN EYES. PT. IS BREATHING UNLABORED ON OXYGEN AT 3L/MIN VIA NASAL CANNULA. NO S/S OF ACUTE DISTRESS. IV FLUIDS RUNNING AT 75 ML/HR. ESTRELLA CATHETER HAS CLEAR AND YELLOW URINE. BED IS IN LOWEST, LOCKED POSITION. 2 SIDE RAILS UP AND INSTRUCTED PT. TO USE CALL LIGHT FOR ASSISTANCE.
[2018-03-27 07:05] LABS: CALCIUM, SERUM 8.2 mg/dL (8.5-10.1); CARBON DIOXIDE 17 mmol/L (21-32); CHLORIDE 112 mmol/L (98-107); CREATININE 0.7 mg/dL (0.6-1.3); GLUCOSE 67 mg/dL (74-106); POTASSIUM 3.7 mmol/L (3.5-5.1); SODIUM SERUM 141 mmol/L (136-145); UREA NITROGEN, BLOOD 19 mg/dL (7-18)
[2018-03-27 08:00] VITALS: BP 147/79
[2018-03-27 08:15] LABS: BASOPHILS % (AUTO) 0.1 % (0.0-2.0); EOSINOPHILS % (AUTO) 0.5 % (0.0-6.0); HEMATOCRIT 22 % (33-45); HEMOGLOBIN 7.1 g/dL (11.5-14.8); LYMPHOCYTES # (AUTO) 0.5 /CMM (0.8-4.8); LYMPHOCYTES % (AUTO) 10.2 % (20.0-44.0); MEAN CORPUSCULAR HEMOGLOBIN 28 PG (26.0-33.0); MEAN CORPUSCULAR HGB CONC 32 g/dl (31.0-36.0); MEAN CORPUSCULAR VOLUME 89 fL (82-100); MONOCYTES # (AUTO) 0.2 /CMM (0.1-1.30); MONOCYTES % (AUTO) 3.3 % (2.0-12.0); NEUTROPHILS # (AUTO) 4.2 /CMM (1.8-8.9); NEUTROPHILS % (AUTO) 85.9 % (43.0-81.0); PLATELET COUNT (AUTO) 185 /CMM (150-450); RDW COEFFICIENT OF VARIATION 15.3 (11.5-15.0); RED BLOOD CELL COUNT(AUTO) 2.51 MIL/uL (4.0-5.2); WHITE BLOOD COUNT (AUTO) 4.9 K/uL (4.3-11.0)
[2018-03-27] MEDS: CADEXOMER IODINE 40 GM TUBE TP SCH (09:00)
[2018-03-27] MEDS: HEPARIN SODIUM, PORCINE 5000 UNITS/1 ML VIAL SQ SCH (09:00)
[2018-03-27] MEDS: ALLOPURINOL 100 MG TABLET PO SCH (09:43)
[2018-03-27] MEDS: ENSURE ENLIVE 237 ML LIQUID (VANILLA) PO SCH ×2 (09:43→13:23)
[2018-03-27] MEDS: FOLIC ACID 1 MG TABLET PO SCH (09:43)
[2018-03-27] MEDS: Z GUARD REMEDY 4 OZ OINT TP SCH (09:44)
[2018-03-27] MEDS: DAKINS QUARTER STRENGTH (0.125%) 480 ML BOTTLE TOP SCH (09:44)
--- NOTE | 2018-03-27 10:00 | NUR ---
RECEIVED PHONE ORDER TO TRANSFUSE 2 UNITS OF PRBC'S PER DR. GAMINO DUE TO LOW H&H.
--- NOTE | 2018-03-27 10:08 | NUR ---
HELD PT.'S HEPARIN DOSE THIS MORNING DUE TO PT. LOW HGB 7.1, AND HCT 22. PLATELETS 185,000. WILL FOLLOW UP WITH .
[2018-03-27] MEDS: HYDROMORPHONE 1 MG/1 ML DISP.SYRIN IV PRN (17:02)
--- NOTE | 2018-03-27 18:30 | NUR ---
NITROGLYCERIN SUPERVISOR PT. WAS DISCHARGED TO [facility] AND REPORT WAS GIVEN TO TETE GASPAR AND AMBULANCE CREW. DISCHARGE INSTRUCTIONS WERE GIVEN DURING REPORT. DISCHARGE PAPERS WERE SIGNED WITH ANOTHER NURSE, DUE TO PT.'S CONDITION. BELONGINGS LIST WAS CHECKED AND SIGNED. IV BAND AND ID WAS REMOVED. DISCHARGE PACKET WAS GIVEN TO AMBULANCE CREW. PT. LEFT IN STABLE CONDITION, VITAL SIGNS WNL.
--- NOTE | 2018-03-27 19:54 | NUR ---
CORRECTION ABOVE PT.'S CALL LIGHT IS WITHIN REACH. PT. IS UNABLE TO CALL FOR ASSISTANCE, AND FOLLOW INSTRUCTIONS DUE TO HER CONDITION.
== END 2018-03-27 19:48 | DRG 592 ==
LOC: ER 11:28 → MED 13:01 → TELE 20:19 → MED 03-25 20:57
PROVIDERS: ADMIT Internal Medicine; ATTEND Internal Medicine
DX: L89.159 Pressure ulcer of sacral region, unspecified stage (principal); N17.0 Acute kidney failure with tubular necrosis; E43 Unspecified severe protein-calorie malnutrition; E87.0 Hyperosmolality and hypernatremia; R64 Cachexia; Z68.1 Body mass index [BMI] 19.9 or less, adult; F02.80 Dementia in other diseases classified elsewhere, unspecified severity, without behavioral disturbance, psychotic disturbance, mood disturbance, and anxiety; G30.9 Alzheimer's disease, unspecified; Z66 Do not resuscitate; Z51.5 Encounter for palliative care; G40.909 Epilepsy, unspecified, not intractable, without status epilepticus; E87.6 Hypokalemia; I10 Essential (primary) hypertension; I73.9 Peripheral vascular disease, unspecified; L89.610 Pressure ulcer of right heel, unstageable; L89.890 Pressure ulcer of other site, unstageable; D63.8 Anemia in other chronic diseases classified elsewhere; E53.8 Deficiency of other specified B group vitamins; L89.219 Pressure ulcer of right hip, unspecified stage
CPT/HCPCS: 36415; 80048-TC; 82306; 82378; 82728-TC; 82746; 83010; 83540-TC; 83615-TC; 84443-TC; 84550-TC; 85025-TC; 85045-TC; 85652-TC; 86850-TC; 86921-TC; 87070-TC; 87081-TC; 87186-TC; A4606; A6253; A6402; A6403; J1170; J1644; J3480; J3490; J7040; J7042; J7050; J7060; J7070; P9016-BL; Z7610